=== PATIENT | female | born 1955 | race Caucasian/White ===

== ENCOUNTER 2024-06-05 08:03 | Emergency (ER) | payer BC, SELFPAY ==
--- NOTE | 2024-06-05 08:08 | ED.GENADULT ---
HPI - General Adult General Chief complaint: Upper Respiratory Infection Stated complaint: CONGESTION/HEADACHE/FEVER/CHILLS Time Seen by Provider: 06/05/24 08:07 Source: patient Mode of arrival: ambulatory Limitations: no limitations History of Present Illness HPI narrative: 68-year-old female patient presents to the [facility] with complaints of cold symptoms for the past 3-4 days. Patient states she has been running a low-grade fever of about 99-100. Patient states she has had a cough, scratchy throat, congestion, runny nose. Patient states she is not taking anything for her symptoms since they started only Tylenol. Denies any chest pain or shortness of breath. Denies any abdominal pain, nausea, vomiting or diarrhea. Related Data Home Medications ?Medication ?Instructions ?Recorded ?Confirmed ?Last Taken ?Type atorvastatin 20 mg tablet 20 mg PO QPM 06/05/24 06/05/24 Unknown History levothyroxine 75 mcg tablet 75 mcg PO DAILY 06/05/24 06/05/24 Unknown History (Synthroid) rivaroxaban 20 mg tablet (Xarelto) 20 mg PO Q24H 06/05/24 06/05/24 Unknown History Allergies Allergy/AdvReac Type Severity Reaction Status Date / Time No Known Allergies Allergy Verified 06/05/24 08:18 Review of Systems Review of Systems: CONSTITUTIONAL: Positive fever, body aches and chills, denies sweats. EYES: Denies visual changes, redness, or discharge. ENT: positive rhinorrhea, congestion, sore throat, denies otalgia. CARDIOVASCULAR: Denies chest pain, palpitations, or edema. RESPIRATORY: positive cough denies dyspnea. GASTROINTESTINAL: Denies abdominal pain, nausea, vomiting, or diarrhea. GENITOURINARY: Denies dysuria or hematuria. SKIN: Denies rash or itching. MUSCULOSKELETAL: Denies back pain, joint pain, or myalgia. NEUROLOGIC: Denies headache, numbness, or weakness. PSYCHIATRIC: Denies anxiety or depression. PMFSH Comments At the time of my signature I agree with nursing past medical history, surgical, social, and family history. There is no relevant family history pertinent to the presenting complaint. Exam Narrative: GENERAL: Well-appearing, well-nourished, and in no acute distress. HEAD: Normocephalic, atraumatic. EYES: PERRLA and EOMI. ENT: Nares with erythema edema noted bilaterally, no rhinorrhea or epistaxis. Mucous membranes moist. posterior pharynx with no erythema, tonsillar enlargement, exudates or lesions present. Bilateral TMs are clear no erythema or foreign bodies the canal. NECK: Supple. No lymphadenopathy CHEST: Clear to auscultation. No respiratory distress. HEART: Regular rate and rhythm. No murmur heard. Normal peripheral pulses. ABDOMEN: Soft, nontender, nondistended, normal active bowel sounds. EXTREMITIES: Normal range of motion. No edema. SKIN: Warm, dry, no rash. NEURO: No focal deficits. Alert and oriented x3. Course Course Level of Care: Express Care Visit Vital Signs Vital signs: Vital Signs Temperature 37.4 C 06/05/24 08:23 Pulse Rate 98 06/05/24 08:23 Respiratory Rate 16 06/05/24 08:23 Blood Pressure 123/79 06/05/24 08:23 Pulse Oximetry 99 06/05/24 08:23 Temperature 37.4 C 06/05/24 08:23 Pulse Rate 98 06/05/24 08:23 Respiratory Rate 16 06/05/24 08:23 Blood Pressure 123/79 06/05/24 08:23 Pulse Oximetry 99 06/05/24 08:23 Vital signs reviewed. Medical Decision Making MDM Narrative Medical decision making narrative: Notified patient that her point of care testing is negative today. Discussed with her that this is most likely some type of virus are cold and she should continue to treat her symptoms with [id number] medications would also recommend some warm salt water gargles and hot tea and honey to help with the throat. Patient verbalized understanding denies any other questions or concerns at this time. Differential Diagnosis Differential Diagnosis: Differential diagnosis: Allergic rhinitis, chronic sinusitis, tonsillitis, acute sinusitis, infectious mononucleosis, seasonal influenza, pertussis, diphtheria, meningococcal disease, viral syndrome, viral bronchitis, RSV, COVID-19 Vital Signs Vital Signs: Vital Signs Temperature 37.4 C 06/05/24 08:23 Pulse Rate 98 06/05/24 08:23 Respiratory Rate 16 06/05/24 08:23 Blood Pressure 123/79 06/05/24 08:23 Pulse Oximetry 99 06/05/24 08:23 Temperature 37.4 C 06/05/24 08:23 Pulse Rate 98 06/05/24 08:23 Respiratory Rate 16 06/05/24 08:23 Blood Pressure 123/79 06/05/24 08:23 Pulse Oximetry 99 06/05/24 08:23 Lab Data Labs: Lab Results 06/05/24 Range/Units 08:23 POC Influenza A Ag Negative (Negative) POC Influenza B Ag Negative (Negative) POC SARS CoV-2 Ag Negative (Negative) Critical Care Time Critical Care Time Critical Care Time: No Discharge Plan Discharge Clinical Impression: Viral URI with cough Patient Disposition: Home, Self-Care Condition: Stable Instructions: Antibiotic Form, Viral Syndrome (ED) Additional Instructions: Viral illness may last between 7-12days; antibiotic is NOT recommended at this time. Recommend antihistamine such as Benadryl at night time and Claritin/Zyrtec/Yamilex during the day Cough syrup may cause drowsiness; avoid driving or take it at night time. Also, recommend symptomatic treatment includes: rest, fluids, and increase humidity of the air at home. Recommend Acetaminophen or nonsteroidal anti-inflammatory agents (NSAIDs) as directed in the bottle to reduce fever and/pain/headache. Avoid smoking/second-hand smoke. Limit visits to areas with large crowds. Please schedule a follow-up visit with your personal physician for further evaluation and treatment within 3-5days. Including recheck and discussion of your blood pressure. If your symptoms persist, change or worsen significantly before you can contact your personal physician then please, without delay, go to the emergency department for further evaluation. Patient Language: Dominican Prescriptions: No Action atorvastatin 20 mg tablet 20 mg PO QPM levothyroxine [Synthroid] 75 mcg tablet 75 mcg PO DAILY Xarelto 20 mg tablet 20 mg PO Q24H Follow-up/Referrals: UNKNOWN,DOCTOR [Non-Staff] - Time of Disposition: 08:38
[2024-06-05 08:23] VITALS: BP 123/79; PULSE 98; RESP 16; TEMP 37.4; O2SAT 99
[2024-06-05 08:27] LABS: EDCOVIDSCREEN Negative (Negative); EDINFLUASCREEN Negative (Negative); EDINFLUBSCREEN Negative (Negative)
== END 2024-06-05 08:50 | disposition home or self-care (01) ==
PROVIDERS: Emergency Provider Nurse Practitioner Family
DX: J06.9 Acute upper respiratory infection, unspecified (principal); R05.9 Cough, unspecified; Z20.822 Contact with and (suspected) exposure to COVID-19; E03.9 Hypothyroidism, unspecified; Z79.01 Long term (current) use of anticoagulants; Z86.718 Personal history of other venous thrombosis and embolism; Z86.711 Personal history of pulmonary embolism; Z96.653 Presence of artificial knee joint, bilateral; Z90.89 Acquired absence of other organs
CPT/HCPCS: 87426; 87804; 99202; G0463